=== PATIENT | male | born 1980 | race African-American/Black ===

== ENCOUNTER 2019-02-06 12:43 | Inpatient (IN) | payer MEDICAID ==
[~2019-02-06] VITALS: Ht 177.8 cm; Wt 99.8 kg
[2019-02-06] MEDS ORDERED: ALBUTEROL (0.083%) 2.5MG/3ML NEB HHN STA (14:25)
[2019-02-06] MEDS ORDERED: PREDNISONE 20MG TABLET PO STA (14:25)
[2019-02-06] MEDS ORDERED: SODIUM CHLORIDE 0.9% 1,000 ML IV ONE (16:30)
[2019-02-06 16:58] LABS: BASOPHILS % 0.8 % (0.0-2.0); HEMATOCRIT. 45.7 % (42.0-52.0); HEMOGLOBIN. 15.5 g/dL (14.0-18.0); MEAN CORPUSCULAR HEMOGLOBIN 30.8 pg (28.0-32.0); MEAN CORPUSCULAR VOLUME 90.6 fL (80.0-94.0); MEAN PLATELET VOLUME 8.3 fl (7.4-10.4); MONOCYTES % 7.5 % (2.0-8.0); NEUTROPHILS % 53.7 % (40.0-76.0); PLATELET 253 x1000/uL (130-400); RED BLOOD CELL COUNT 5.04 mill/uL (4.7-6.1); RED CELL DISTRIBUTION WIDTH 12.8 % (11.6-14.6)
[2019-02-06 17:04] LABS: CHLORIDE 107 mEq/L (98-107)
[2019-02-06 20:00] VITALS: BP 133/58
[2019-02-06 21:00] VITALS: BP 120/81
[2019-02-06] MEDS ORDERED: BUDE6HFA INH (21:11)
[2019-02-06] MEDS ORDERED: ALBU18HF2 IH (21:11)
[2019-02-06] MEDS ORDERED: DOCUSATE SODIUM 100MG CAPSULE PO PRN (21:15)
[2019-02-06] MEDS ORDERED: GUAIFENESIN 200MG/10ML SUGAR FREE UDC PO PRN (21:15)
[2019-02-06] MEDS ORDERED: ONDANSETRON HCL 4MG/2ML INJ IV PRN (21:15)
[2019-02-06] MEDS ORDERED: ACETAMINOPHEN 650MG SUPP PR PRN (21:15)
[2019-02-06] MEDS ORDERED: NA PHOS,M-B/NA PHOS,DI-BA ENEMA 118ML PR PRN (21:15)
[2019-02-06] MEDS ORDERED: IPRATROPIUM/ALBUTEROL 0.5-3(2.5)MG/3ML NEB HHN PRN (21:15)
[2019-02-06] MEDS ORDERED: HYDROCODONE/ACETAMINOPHEN 5/325MG TABLET PO PRN (21:15)
[2019-02-06] MEDS ORDERED: ACETAMINOPHEN 650MG/20.3ML UDC GT PRN (21:15)
[2019-02-06] MEDS ORDERED: DIPHENHYDRAMINE 50MG/ML VIAL IV PRN (21:15)
[2019-02-06] MEDS ORDERED: ACETAMINOPHEN 325MG TABLET PO PRN (21:15)
[2019-02-06] MEDS: IPRATROPIUM/ALBUTEROL 0.5-3(2.5)MG/3ML NEB HHN SCH (21:24)
[2019-02-06] MEDS: METHYLPREDNISOLONE SOD SUCC 125 MG/2 ML VIAL IV SCH (21:25)
[2019-02-06] MEDS: ENOXAPARIN 30MG/0.3ML SYR SUBCUT SCH (22:13)
[2019-02-06] MEDS: SODIUM CHLORIDE 0.9% INJ 3ML FLUSH IVF SCH (22:13)
[2019-02-06] MEDS ORDERED: SODIUM CHLORIDE 0.9% 1,000 ML IV SCH (22:30)
[2019-02-07] VITALS: BP_SYST 118; BP_SYST 119; BP_DIAS 61; BP_DIAS 76
[2019-02-07] MEDS: IPRATROPIUM/ALBUTEROL 0.5-3(2.5)MG/3ML NEB HHN SCH ×2 (02:30→08:08)
[2019-02-07 04:00] VITALS: BP 125/75
[2019-02-07] MEDS: SODIUM CHLORIDE 0.9% INJ 3ML FLUSH IVF SCH (05:19)
[2019-02-07] MEDS: METHYLPREDNISOLONE SOD SUCC 125 MG/2 ML VIAL IV SCH (05:19)
[2019-02-07 06:40] LABS: BASOPHILS % 0.1 % (0.0-2.0); HEMATOCRIT. 42.3 % (42.0-52.0); HEMOGLOBIN. 14.4 g/dL (14.0-18.0); LYMPHOCYTES % 9.6 % (20.0-50.0); MEAN CORPUSCULAR HEMOGLOBIN 30.9 pg (28.0-32.0); MEAN CORPUSCULAR VOLUME 90.4 fL (80.0-94.0); MEAN PLATELET VOLUME 8.7 fl (7.4-10.4); MONOCYTES % 0.8 % (2.0-8.0); NEUTROPHILS % 89.5 % (40.0-76.0); PLATELET 253 x1000/uL (130-400); RED BLOOD CELL COUNT 4.68 mill/uL (4.7-6.1); RED CELL DISTRIBUTION WIDTH 12.7 % (11.6-14.6)
[2019-02-07 06:45] LABS: CHLORIDE 109 mEq/L (98-107)
[2019-02-07 06:52] LABS: LDL CHOLESTEROL 71 mg/dL (5-100)
[2019-02-07 06:56] LABS: HDL CHOLESTEROL 24 mg/dL (40-59)
[2019-02-07 07:58] VITALS: BP 114/67
[2019-02-07] MEDS: ENOXAPARIN 30MG/0.3ML SYR SUBCUT SCH (09:39)
[2019-02-07 12:00] VITALS: BP 109/76
[2019-02-08] MEDS ORDERED: METHYLPREDNISOLONE SOD SUCC 40 MG/ML VIAL IV SCH
== END 2019-02-07 14:30 | disposition left against medical advice (07) | DRG 133 ==
LOC: ER 13:11 → 7WST 17:06 → ENRESERV 19:26
PROVIDERS: ADMIT Family Medicine; ATTEND Family Medicine
DX: J96.00 Acute respiratory failure, unspecified whether with hypoxia or hypercapnia (principal); J45.901 Unspecified asthma with (acute) exacerbation; Z53.21 Procedure and treatment not carried out due to patient leaving prior to being seen by health care provider; Z79.51 Long term (current) use of inhaled steroids; Z87.891 Personal history of nicotine dependence; Z88.7 Allergy status to serum and vaccine; Z79.899 Other long term (current) drug therapy
CPT/HCPCS: 36415; 71045; 80061; 93005; 94640; 99285; J1650; J2930; J7030; J7512; J7611; J7620

== ENCOUNTER 2019-03-11 08:38 | Emergency (ER) | payer MEDICAID, OTHER ==
[~2019-03-11] VITALS: Ht 175.3 cm; Wt 100.0 kg
[~2019-03-11 08:38] MED LIST: ALBU18HF2 IH; BUDE6HFA INH
[2019-03-11 08:40] VITALS: BP 123/82
== END 2019-03-11 09:53 | disposition home or self-care (01) ==
LOC: ER 08:38
DX: H92.01 Otalgia, right ear (principal); R09.81 Nasal congestion; J34.89 Other specified disorders of nose and nasal sinuses; H69.90 Unspecified Eustachian tube disorder, unspecified ear; Z88.7 Allergy status to serum and vaccine
CPT/HCPCS: 99283